=== PATIENT | female | born 1965 | race Caucasian/White ===

== ENCOUNTER → 2016-10-16 | Outpatient (CLI) | payer OTHER ==
--- NOTE | 2016-10-16 10:40 | MA ---
Screening Digital Mammogram With iCAD Analysis Clinical Indications: Routine screening. Technique: Standard cephalocaudal projections are obtained. Digital breast tomosynthesis was performe d in the MLO projection with reconstruction at 1.0 mm slice thickness and composite MLO views reconst ructed. This examination is processed by the iCAD computer aided detection system. Comparison: October 2015, September 2015, October 2014, September 2014, August 2013, July 2012, J mariluz 2009, February 2009. Breast density: Type C: Heterogeneously dense. Findings: CAD was reviewed. There are increasing microcalcifications in the anterior right breast. No associated soft tissue mass is seen. The heterogeneous glandular pattern of the left breast is stabl e. Impression: Right breast microcalcifications require further evaluation, BI-RADS 0. Recommendation: Magnification views of the right breast. [facility] will send a result letter to the patient. Negative mammography should not preclude additional workup of a clinically suspicious finding. The patient's information is entered into a reminder system with a target due date for her next mammo gram. [email or web address]
== END ==
LOC: FIMAGING 09:36
DX: Z12.31 Encounter for screening mammogram for malignant neoplasm of breast (principal)
CPT/HCPCS: G0202

== ENCOUNTER → 2016-10-26 | Outpatient (CLI) | payer OTHER ==
--- NOTE | 2016-10-26 10:18 | MA ---
Right Diagnostic Mammogram Indication: Increasing microcalcifications in anterior right breast. Technique: True lateral and spot magnified CC and mediolateral views of the anterior right breast. Comparison: Screening and diagnostic mammograms dating back to February 2009. Findings: Loosely scattered microcalcifications are superimposed on the CC view and largely unchanged on the true lateral view from prior studies. Several of the calcifications have a layering effect on the spot magnified true lateral view indicative of benign fibrocystic milk of calcium. No linear or branching features. No associated mass or architectural distortion. 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 BI-RADS 2: Benign Finding. Recommendation: Resume routine screening in September 2017 unless otherwise clinically indicated. Brad nt notified of the negative results and recommendations at time of study completion.
== END ==
LOC: FIMAGING 09:29
PROVIDERS: ATTEND Obstetrics & Gynecology
DX: N60.11 Diffuse cystic mastopathy of right breast (principal)
CPT/HCPCS: G0206

== ENCOUNTER 2017-10-04 17:44 | Emergency (ER) | payer OTHER ==
[2017-10-04] MEDS ORDERED: ONDANSETRON 4 MG/2 ML VIAL ONE (18:00)
[2017-10-04] MEDS ORDERED: HYDROmorphONE/DILAUDID 1 MG/ML INJ ONE (18:00)
[2017-10-04] MEDS ORDERED: HYDROmorphONE/DILAUDID 1 MG/ML INJ IVP ONE (18:02)
[2017-10-04] MEDS ORDERED: ONDANSETRON 4 MG/2 ML VIAL IVP ONE (18:02)
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
[2017-10-04] MEDS ORDERED: LORazepam 2 MG/ML INJ ONE (18:17)
[2017-10-04] MEDS ORDERED: LORazepam 2 MG/ML INJ IVP ONE (18:18)
[2017-10-04] MEDS ORDERED: fentaNYL 100 MCG/2 ML INJ ONE (18:49)
[2017-10-04] MEDS ORDERED: fentaNYL 100 MCG/2 ML INJ IVP ONE (18:55)
[2017-10-04] MEDS ORDERED: TDAP ADULT 0.5 ML INJ (BOOSTRIX) IM ONE (19:08)
[2017-10-04] MEDS ORDERED: HYDROCOD/APAP 5/325 PREPACK#6 BTL TAKEHOME ONE (19:11)
[2017-10-04 20:25] VITALS: BP 115/74; PULSE 94; RESP 16; TEMP 98.6; O2SAT 99
== END 2017-10-04 20:25 | disposition home or self-care (01) ==
DX: S09.90XA Unspecified injury of head, initial encounter (principal); S52.022A Displaced fracture of olecranon process without intraarticular extension of left ulna, initial encounter for closed fracture; Z23 Encounter for immunization; V03.00XA Pedestrian on foot injured in collision with car, pick-up truck or van in nontraffic accident, initial encounter; Y92.410 Unspecified street and highway as the place of occurrence of the external cause; Y93.01 Activity, walking, marching and hiking
CPT/HCPCS: 96374; J1170; J2060; J2405; J3010

== ENCOUNTER 2017-10-08 04:57 | Emergency (ER) | payer OTHER ==
[2017-10-08 05:02] VITALS: BP 124/78; PULSE 73; RESP 18; TEMP 97.7; O2SAT 97
[2017-10-08] MEDS ORDERED: ACETAMINOPHEN 325 MG TAB PO ONE (05:26)
[2017-10-08] MEDS ORDERED: OXYCODONE/APAP 5/325 TAB PO ONE (05:26)
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
== END 2017-10-08 08:45 | disposition home or self-care (01) ==
DX: G89.18 Other acute postprocedural pain (principal); M25.522 Pain in left elbow
CPT/HCPCS: A4565

== ENCOUNTER → 2017-11-29 | Outpatient (CLI) | payer OTHER | LOC: FIMAGING 13:03 | PROVIDERS: ATTEND Obstetrics & Gynecology | DX: Z12.31 Encounter for screening mammogram for malignant neoplasm of breast (principal) ==

== ENCOUNTER → 2018-12-06 | Outpatient (CLI) | payer OTHER | LOC: FIMAGING 08:35 | PROVIDERS: ATTEND Obstetrics & Gynecology | DX: Z12.31 Encounter for screening mammogram for malignant neoplasm of breast (principal) ==